=== PATIENT | male | born 1975 | race Two or more races ===

== ENCOUNTER 2018-01-17 17:49 | Emergency (ER) | payer SELFPAY ==
[~2018-01-17] VITALS: Ht 160 cm; Wt 72.6 kg
[2018-01-17 19:33] VITALS: BP 172/88
[2018-01-17] MEDS ORDERED: CLOT15CR5 TP (19:50)
--- NOTE | 2018-01-17 19:51 | PHYS DOC ---
Past Medical History Past Medical History: No Pertinent History Past Surgical History: No Surgical History Alcohol Use: None Drug Use: None Adult General Chief Complaint Chief Complaint: PENIS PROBLEM HPI HPI Patient is a 42 year old male who presents with itching and pain to his penis. The patient states that he has been seen at a health department and STD clinic and had no sexually transmitted diseases found. He states that there is itching and tiny lesions that are painful. Review of Systems Review of Systems Constitutional: Denies fever or chills [] Respiratory: Denies cough or shortness of breath [] Cardiovascular: No additional information not addressed in HPI [] GI: Denies abdominal pain, nausea, vomiting, bloody stools or diarrhea [] : See history of present illness Musculoskeletal: Denies back pain or joint pain [] Integument: Denies rash or skin lesions [] Neurologic: Denies headache, focal weakness or sensory changes [] Endocrine: Denies polyuria or polydipsia [] All other systems were reviewed and found to be within normal limits, except as documented in this note. Allergies Allergies Allergies Coded Allergies Type Severity Reaction Last Updated Verified No Known Drug Allergies 01/17/18 No Physical Exam Physical Exam Constitutional: Well developed, well nourished, no acute distress, non-toxic appearance. [] Cardiovascular:Heart rate regular rhythm, no murmur [] Lungs & Thorax: Bilateral breath sounds clear to auscultation [] Abdomen: Bowel sounds normal, soft, no tenderness, no masses, no pulsatile masses. [] Skin: Warm, dry, no erythema, no rash. [] Back: No tenderness, no CVA tenderness. [] : The penis has erythema at the head of the penis with small disruptions in the skin, the skin is slightly macerated Neurologic: Alert and oriented X 3, normal motor function, normal sensory function, no focal deficits noted. [] Psychologic: Affect normal, judgement normal, mood normal. [] Current Patient Data Vital Signs Vital Signs Date Time Temp Pulse Resp B/P (MAP) Pulse Ox O2 Delivery O2 Flow Rate FiO2 01/17/18 19:33 98.0 74 16 172/88 (116) 99 Room Air 98.0 EKG EKG [] Radiology/Procedures Radiology/Procedures [] Course & Med Decision Making Course & Med Decision Making Staff Physician Addendum: I was working in the ER during the course of this patient's visit. I was available for consultation as needed, but I was not directly involved in the care of this patient. Pertinent Labs and Imaging studies reviewed. (See chart for details) [] Dragon Disclaimer Dragon Disclaimer This electronic medical record was generated, in whole or in part, using a voice recognition dictation system. Departure Departure Impression: Primary Impression: Yeast dermatitis of penis Disposition: HOME, SELF-CARE Condition: STABLE Referrals: NO PCP (PCP) ALFRED LEACH MD Patient Instructions: Yeast Infection of the Skin, [id number] Additional Instructions: Use the cream as directed. Follow-up with your primary care provider in one week if not improving or make an appointment with urology for further evaluation and treatment. Scripts Clotrimazole/Betamethasone Dip (CLOTRIMAZOLE-BETAMETHASONE CRM) 15 Gm Cream..g. 1 AMMON TP BID, #30 GM 1 Refill Prov: MEÑO BENEDICT APRN 01/17/18 MEÑO BENEDICT APRN Jan 17, 2018 19:51 KANG NEWSOME MD Jan 18, 2018 04:08
== END 2018-01-17 19:58 | disposition home or self-care (01) ==
LOC: ER 17:49
DX: N48.29 Other inflammatory disorders of penis (principal); B37.49 Other urogenital candidiasis
CPT/HCPCS: 99283